=== PATIENT | female | born 1960 | race Caucasian/White ===

== ENCOUNTER 2018-01-27 11:43 | Inpatient (IN) | payer BC ==
--- NOTE | 2018-01-27 11:57 | PDOC ---
History of Present Illness - General Chief Complaint: Respiratory Stated Complaint: R/O PNE Time Seen by Provider: 01/27/18 11:53 - History of Present Illness Initial Comments: 01/27/18 11:56 Patient denies N/V, F,C, CP, SOB, urinary complaints, abdominal pain, diarrhea, constipation, lightheadedness, weakness, sensory changes. PMHx: as noted above ROS: as noted SHx: Allergies: Past History - Past Medical History Allergies/Adverse Reactions: Allergies Allergy/AdvReac Type Severity Reaction Status Date / Time No Known Allergies Allergy Verified 01/27/18 11:49 COPD: Yes Hypercholesterolemia: Yes Psychiatric Problems: Yes (depression) - Suicide/Smoking/Psychosocial Hx Smoking History: Current every day smoker Number of Cigarettes Smoked Daily: 20 Information on smoking cessation initiated: No Review of Systems - Review of Systems Comments:: 01/27/18 11:56 GENERAL/CONSTITUTIONAL: No fever or chills. No weakness. HEAD, EYES, EARS, NOSE AND THROAT: No change in vision. No ear pain or discharge. No sore throat. CARDIOVASCULAR: No chest pain or shortness of breath RESPIRATORY: No cough, wheezing, or hemoptysis. GASTROINTESTINAL: No nausea, vomiting, diarrhea or constipation. GENITOURINARY: No dysuria, frequency, or change in urination. MUSCULOSKELETAL: No joint or muscle swelling or pain. No neck or back pain. SKIN: No rash NEUROLOGIC: No headache, vertigo, loss of consciousness, or change in strength/ sensation. ENDOCRINE: No increased thirst. No abnormal weight change HEMATOLOGIC/LYMPHATIC: No anemia, easy bleeding, or history of blood clots. ALLERGIC/IMMUNOLOGIC: No hives or skin allergy. *Physical Exam - Vital Signs Last Vital Signs Temp Pulse Resp BP Pulse Ox 97.8 F 75 18 161/56 L 93 L 01/27/18 11:45 01/27/18 11:45 01/27/18 11:45 01/27/18 11:45 01/27/18 11:45 - Physical Exam Comments: 01/27/18 11:56 GENERAL: Awake, alert, and fully oriented, in no acute distress HEAD: No signs of trauma, normocephalic, atraumatic EYES: PERRLA, EOMI, sclera anicteric, conjunctiva clear ENT: Auricles normal inspection, hearing grossly normal, nares patent, oropharynx clear without exudates. Moist mucosa NECK: Normal ROM, supple, no lymphadenopathy, JVD, or masses LUNGS: No distress, speaks full sentences, clear to auscultation bilaterally HEART: Regular rate and rhythm, normal S1 and S2, no murmurs, rubs or gallops, peripheral pulses normal and equal bilaterally. ABDOMEN: Soft, nontender, normoactive bowel sounds. No guarding, no rebound. No masses EXTREMITIES : Normal inspection, Normal range of motion, no edema. No clubbing or cyanosis. NEUROLOGICAL: Cranial nerves II through XII grossly intact. Normal speech, normal gait, no focal sensorimotor deficits SKIN: Warm, Dry, normal turgor, no rashes or lesions noted Moderate Sedation - Procedure Monitoring Vital Signs: Procedure Monitoring Vital Signs Temperature 97.8 F 01/27/18 11:45 Pulse Rate 75 01/27/18 11:45 Respiratory Rate 18 01/27/18 11:45 Blood Pressure 161/56 L 01/27/18 11:45 O2 Sat by Pulse Oximetry (%) 93 L 01/27/18 11:45 *DC/Admit/Observation/Transfer - Referrals Referrals: Carlyn Hunter MD [Primary Care Provider] - - Patient Instructions Additional Instructions: Please return to the emergency department with any new or worsening symptoms or concerns. Please follow up with your primary care physician within 72 hours. - Post Discharge Activity - Attestations Physician Attestion: 01/27/18 11:57 I attest to the information provided in this note.
--- NOTE | 2018-01-27 12:05 | PDOC ---
History of Present Illness - History of Present Illness Initial Comments: 01/27/18 12:08 Ms. Glass is a 57 yo female w/ pmh of HLD and COPD (current every day smoker) who presents for evaluation of several day history of cough with fevers, chills , and body aches. Patient reports these symptoms started Sunday night and were shared by her granddaughter. Patient reports she was evaluated at urgent care on Sunday (01/25) and given a z-mary for presumed pneumonia however presents today as symptoms have continued with increased coughing (fever/chills/body aches have resolved). She did not have a flu swab at that time nor a CXR. Patient has no other complaints at this time. The patient denies chest pain, headache and dizziness. Denies nausea, vomit, diarrhea and constipation. Denies dysuria, frequency, urgency and hematuria. <Fish Cast - Last Filed: 01/27/18 14:44> <Jayy Norton - Last Filed: 01/27/18 16:03> - General Chief Complaint: Respiratory Stated Complaint: R/O PNE Time Seen by Provider: 01/27/18 11:53 Past History - Past Medical History COPD: Yes Hypercholesterolemia: Yes Psychiatric Problems: Yes (depression) - Suicide/Smoking/Psychosocial Hx Smoking History: Current every day smoker Number of Cigarettes Smoked Daily: 20 Information on smoking cessation initiated: No <Fish Cast - Last Filed: 01/27/18 14:44> <Jayy Norton - Last Filed: 01/27/18 16:03> - Past Medical History Allergies/Adverse Reactions: Allergies Allergy/AdvReac Type Severity Reaction Status Date / Time No Known Allergies Allergy Verified 01/27/18 11:49 Home Medications: Ambulatory Orders Albuterol Sulfate [Proair Respiclick] 2 puff IH Q4H PRN 01/27/18 Budesonide/Formeterol Fumarate [SYMBICORT 160/4.5mcg -] 2 puff IH BID 01/27/18 Escitalopram Oxalate [Lexapro -] 20 mg PO DAILY 01/27/18 Lorazepam 0.5 mg PO DAILY PRN 01/27/18 Rosuvastatin [Crestor -] 10 mg PO DAILY 01/27/18 Tiotropium [place] [Spiriva Respimat] 2 puff IH DAILY 01/27/18 Review of Systems - Review of Systems Comments:: 01/27/18 12:08 GENERAL/CONSTITUTIONAL: +Resolved fever/chills. No weakness. HEAD, EYES, EARS, NOSE AND THROAT: No change in vision. No ear pain or discharge. No sore throat. CARDIOVASCULAR: No chest pain or shortness of breath RESPIRATORY: +Increased cough from COPD daily unrelieved by tessalon pearls or ventolin inhaler. No wheezing, or hemoptysis. GASTROINTESTINAL: No nausea, vomiting, diarrhea or constipation. GENITOURINARY: No dysuria, frequency, or change in urination. MUSCULOSKELETAL: +Bodyaches (resolved) SKIN: No rash NEUROLOGIC: No headache, vertigo, loss of consciousness, or change in strength/ sensation. ENDOCRINE: No increased thirst. No abnormal weight change HEMATOLOGIC/LYMPHATIC: No anemia, easy bleeding, or history of blood clots. ALLERGIC/IMMUNOLOGIC: No hives or skin allergy. <Fish Cast - Last Filed: 01/27/18 14:44> *Physical Exam - Vital Signs Last Vital Signs Temp Pulse Resp BP Pulse Ox 97.8 F 75 18 161/56 L 93 L 01/27/18 11:45 01/27/18 11:45 01/27/18 11:45 01/27/18 11:45 01/27/18 11:45 - Physical Exam Comments: 01/27/18 12:08 GENERAL: Awake, alert, and fully oriented, in no acute distress HEAD: No signs of trauma, normocephalic, atraumatic EYES: PERRLA, EOMI, sclera anicteric, conjunctiva clear ENT: Auricles normal inspection, hearing grossly normal, nares patent, oropharynx clear without exudates. Moist mucosa NECK: Normal ROM, supple, no lymphadenopathy, JVD, or masses LUNGS: +Coarse breath sounds appreciated in all wagner. Dry hacking cough appreciated. Speaks full sentences HEART: Regular rate and rhythm, normal S1 and S2, no murmurs, rubs or gallops, peripheral pulses normal and equal bilaterally. ABDOMEN: Soft, nontender, normoactive bowel sounds. No guarding, no rebound. No masses EXTREMITIES: Normal inspection, Normal range of motion, no edema. No clubbing or cyanosis. NEUROLOGICAL: Cranial nerves II through XII grossly intact. Normal speech, normal gait, no focal sensorimotor deficits SKIN: Warm, Dry, normal turgor, no rashes or lesions noted. <Fish Cast - Last Filed: 01/27/18 14:44> - Vital Signs Last Vital Signs Temp Pulse Resp BP Pulse Ox 98.5 F 83 18 113/83 93 L 01/27/18 15:42 01/27/18 15:42 01/27/18 15:42 01/27/18 15:42 01/27/18 15:42 <Jayy Norton - Last Filed: 01/27/18 16:03> Moderate Sedation - Procedure Monitoring Vital Signs: Procedure Monitoring Vital Signs Temperature 97.8 F 01/27/18 11:45 Pulse Rate 75 01/27/18 11:45 Respiratory Rate 18 01/27/18 11:45 Blood Pressure 161/56 L 01/27/18 11:45 O2 Sat by Pulse Oximetry (%) 93 L 01/27/18 11:45 <Fish Cast - Last Filed: 01/27/18 14:44> - Procedure Monitoring Vital Signs: Procedure Monitoring Vital Signs Temperature 98.5 F 01/27/18 15:42 Pulse Rate 83 01/27/18 15:42 Respiratory Rate 18 01/27/18 15:42 Blood Pressure 113/83 01/27/18 15:42 O2 Sat by Pulse Oximetry (%) 93 L 01/27/18 15:42 <Jayy Norton - Last Filed: 01/27/18 16:03> ED Treatment Course - LABORATORY CBC & Chemistry Diagram: 01/27/18 12:47 01/27/18 12:47 <Fish Cast - Last Filed: 01/27/18 14:44> - LABORATORY CBC & Chemistry Diagram: 01/27/18 12:47 01/27/18 12:47 - ADDITIONAL ORDERS Additional order review: Laboratory Results 01/27/18 12:47 Sodium 137 Potassium 3.6 Chloride 100 Carbon Dioxide 28 Anion Gap 8 BUN 10 Creatinine 0.6 Creat Clearance w eGFR > 60 Random Glucose 92 Calcium 8.1 L Total Bilirubin 0.3 AST 25 ALT 32 Alkaline Phosphatase 124 H Total Protein 6.7 Albumin 3.0 L 01/27/18 12:47 RBC 4.97 MCV 80.7 MCHC 32.0 RDW 15.6 MPV 8.7 Neutrophils % 73.0 Lymphocytes % 14.4 Monocytes % 8.3 Eosinophils % 1.6 Basophils % 2.7 H - Medications Given in the ED: ED Medications Discontinued Medications Generic Name Dose Route Start Last Admin Trade Name Jenny PRN Reason Stop Dose Admin Albuterol/Ipratropium 1 amp 01/27/18 12:30 01/27/18 13:02 Duoneb - NEB 01/27/18 13:16 1 amp Q15M YULISSA Administration Prednisone 60 mg 01/27/18 14:58 01/27/18 15:25 Deltasone - PO 01/27/18 14:59 60 mg ONCE ONE Administration <Jayy Norton - Last Filed: 01/27/18 16:03> Medical Decision Making - Medical Decision Making 01/27/18 12:25 Ms. Glass is a 57 yo female w/ pmh as described who presents for evaluation of cough diagnosed as pneumonia in outpatient urgent care with exacerbation of cough symptoms. Patient evaluation begun with basic labs and EKG/CXR/Flu for r/ o pneumonia. Smoking cessation strategies also discussed and patient verbalized she is going to try to quit smoking entirely. 01/27/18 13:09 Patient noted to have positive influenza. Labs otherwise grossly wnl as below. 01/27/18 14:11 Patient noted to have O2 saturation of approximately 93% - steady throughout visit. Patient unable to describe baseline COPD sat. PCP/Gang Pusher paged for further information. 01/27/18 14:25 Discussed patient w/ Gang Pusher (Dr. Weiner) who reports patient's baseline is around 93. Suggested walking patient for evaluation. 01/27/18 14:44 Patient ambulatory exam positive for drop of O2 saturation to 81%. Given patient 's comorbidities will admit patient for overnight evaluation. Laboratory Results - last 24 hr 01/27/18 01/27/18 01/27/18 12:35 12:47 12:47 WBC 6.3 RBC 4.97 Hgb 12.9 Hct 40.2 MCV 80.7 MCH 25.9 MCHC 32.0 RDW 15.6 Plt Count 193 MPV 8.7 Absolute Neuts (auto) 4.6 Neutrophils % 73.0 Lymphocytes % 14.4 Monocytes % 8.3 Eosinophils % 1.6 Basophils % 2.7 H Nucleated RBC % 0 Sodium 137 Potassium 3.6 Chloride 100 Carbon Dioxide 28 Anion Gap 8 BUN 10 Creatinine 0.6 Creat Clearance w eGFR > 60 Random Glucose 92 Calcium 8.1 L Total Bilirubin 0.3 AST 25 ALT 32 Alkaline Phosphatase 124 H Total Protein 6.7 Albumin 3.0 L Influenza A (Rapid) Positive Influenza B (Rapid) Negative <Fish Cast - Last Filed: 01/27/18 14:44> *DC/Admit/Observation/Transfer - Discharge Dispostion Decision to Admit order: Yes <Fish Cast - Last Filed: 01/27/18 14:44> <Jayy Norton - Last Filed: 01/27/18 16:03> Diagnosis at time of Disposition: Influenza, Shortness of breath COPD (chronic obstructive pulmonary disease) Qualifiers: COPD type: unspecified COPD Qualified Code(s): J44.9 - Chronic obstructive pulmonary disease, unspecified
--- NOTE | 2018-01-27 12:22 | PDOC ---
Attending Attestation - Resident Resident Name: Fish Cast - ED Attending Attestation I have performed the following: I have examined & evaluated the patient, The case was reviewed & discussed with the resident, I agree w/resident's findings & plan, Exceptions are as noted - HPI HPI: 01/27/18 13:41 The patient is a 57 year old female with a significant past medical history of obesity, COPD, and hyperlipidemia who presents to the emergency department with a persistent cough for several days. The patient reports some associated chills with her caught. She states that she went to urgent care 2 days ago by which she was given a z pack for a pneumonia diagnosis. The patent reports that she has had some sick contact with her grand-daughter at home. She denies any other symptoms. She denies any fever, nausea, vomiting, diarrhea, constipation or urinary symptoms. She denies any chest pain, headache or dizziness. pt notes some mildly increased LABOY recently. +chronic smoker, but recently stopped - Physicial Exam PE: 01/27/18 13:42 GENERAL: The patient is awake, alert, and fully oriented, Nontoxic - in no acute distress. HEAD: Normocephalic, atraumatic. EYES: extraocular movements intact, sclera anicteric, conjunctiva clear. LUNGS: scattered whezing bilaterally, no acute resp distress, speaking complete sentences HEART: Regular rate and rhythm, normal S1 and S2 without murmur, rub or gallop. EXTREMITIES: Normal range of motion, no edema. NEUROLOGICAL: No facial assymetry, Normal speech, PSYCH: Normal mood, normal affect. SKIN: Warm, Dry, normal turgor, - Medical Decision Making 01/27/18 12:22 89y F hx of hl, copd presents with 1 day of cough, fever/chlls, body aches, went to urgent care and treated for clnical pna. cough getting worse, but fever and body aches seem to improve +granddaughter sick with similar symptoms 01/27/18 13:42 flu + cxr neg labs reviewed will treat for flu pts sat is 93-94% on RA - will discuss with PMD / pulm to see if we can get the pts basline saturation 01/27/18 14:[address] Weiner - the patient's baseline O2 sat is approximately 94 %, we ambulated the patient the patient's oxygenation dropped 81% briefly before slowly increasing to the low 90s. Due to this degree of hypoxia with exertion will admit for further management of COPD exacerbation and influenza. Heart Score/ECG Review - ECG Impressions Comment:: 01/27/18 16:16 Twelve-lead EKG was performed and reviewed by me. There is normal sinus rhythm with a normal rate. rate of 72 The axis is normal. The intervals are normal. There is normal R wave progression There are no ST or T wave abnormalities. Impression: Normal twelve-lead EKG
[2018-01-27] MEDS ORDERED: ALBUTEROL SO4 2.5/IPRATROPIUM 0.5 INH SOL 3 ML VIAL.NEB. NEB ONE (12:47)
[2018-01-27] MEDS: ALBUTEROL SO4 2.5/IPRATROPIUM 0.5 INH SOL 3 ML VIAL.NEB. NEB SCH ×3 (12:50→13:02)
[2018-01-27 12:58] LABS: BASO % 2.7 % (0-2.0); EOS % 1.6 % (0-4.5); HEMATOCRIT 40.2 % (32.4-45.2); HEMOGLOBIN 12.9 GM/dL (10.7-15.3); LYMPH % 14.4 % (8-40); MCH 25.9 pg (25.7-33.7); MEAN CELL VOLUME 80.7 fl (80-96); MEAN PLT VOLUME 8.7 fl (7.5-11.1); MONO % 8.3 % (3.8-10.2); PLATELET COUNT 193 K/MM3 (134-434); RBC 4.97 M/mm3 (3.60-5.2); RDW 15.6 % (11.6-15.6); WHITE BLOOD COUNT 6.3 K/mm3 (4.0-10.0)
[2018-01-27 13:12] LABS: ALK PHOS 124 U/L (45-117); ANION GAP 8 MMOL/L (8-16); BILIRUBIN,TOTAL 0.3 mg/dL (0.2-1); BLOOD UREA NITROGEN 10 mg/dL (7-18); CALCIUM 8.1 mg/dL (8.5-10.1); CHLORIDE 100 mmol/L (98-107); CO2 28 mmol/L (21-32); CREATININE 0.6 mg/dL (0.55-1.3); GLUCOSE,RANDOM 92 mg/dL (74-106); POTASSIUM 3.6 mmol/L (3.5-5.1); SGOT/AST 25 U/L (15-37); SGPT/ALT 32 U/L (13-61); SODIUM 137 mmol/L (136-145); TOT PROT 6.7 g/dl (6.4-8.2)
[2018-01-27] MEDS ORDERED: predniSONE 20 MG TABLET (UD) PO ONE (14:58)
[2018-01-27] MEDS ORDERED: predniSONE 20 MG TABLET (UD) ONE (15:12)
[2018-01-27] MEDS ORDERED: LORazepam 0.5 MG TABLET PO PRN (16:09)
[2018-01-27] MEDS: ESCITALOPRAM OXALATE 20 MG TABLET (FP) PO SCH (17:41)
[2018-01-27] MEDS: methylPREDNISolone NA SUCC 40 MG/1 ML VIAL IVPUSH SCH (17:42)
[2018-01-27] MEDS: ALBUTEROL SO4 0.083% IH SOL 2.5 MG/3 ML VIAL.NEB. NEB SCH ×3 (17:58→22:20)
[2018-01-27] MEDS: ROSUVASTATIN CA 10 MG TABLET (FP) PO SCH (21:53)
[2018-01-28] MEDS: methylPREDNISolone NA SUCC 40 MG/1 ML VIAL IVPUSH SCH ×3 (01:38→17:53)
[2018-01-28] MEDS: ALBUTEROL SO4 0.083% IH SOL 2.5 MG/3 ML VIAL.NEB. NEB SCH ×4 (07:58→21:20)
--- NOTE | 2018-01-28 08:37 | HP ---
Admitting History and Physical - Primary Care Physician PCP: Carlyn Hunter - Admission Chief Complaint: cough History of Present Illness: sick for 6 days with fever, chills, myalgias, malaise and cough -went to Urgent care 3 days ago -was given zpack-took 3 doses came to er with c/o peristent cough +for influenza A in er hypoxic on ambulation with 81%O2sats History Source: Patient Limitations to Obtaining History: No Limitations - Past Medical History Cardiovascular: Yes: Hyperlipdemia Pulmonary: Yes: Bronchitis, COPD ...: No Psych: Yes: Depression - Past Surgical History Past Surgical History: Yes: , Tubal Ligation - Smoking History Smoking history: Current every day smoker Have you smoked in the past 12 months: Yes Aproximately how many cigarettes per day: 20 - Alcohol/Substance Use Hx Alcohol Use: No - Social History ADL: Independent History of Recent Travel: No Home Medications - Allergies Allergies/Adverse Reactions: Allergies Allergy/AdvReac Type Severity Reaction Status Date / Time No Known Allergies Allergy Verified 01/27/18 11:49 - Home Medications Home Medications: Ambulatory Orders Albuterol Sulfate [Proair Respiclick] 2 puff IH Q4H PRN 01/27/18 Budesonide/Formeterol Fumarate [SYMBICORT 160/4.5mcg -] 2 puff IH BID 01/27/18 Escitalopram Oxalate [Lexapro -] 20 mg PO DAILY 01/27/18 Lorazepam 0.5 mg PO DAILY PRN 01/27/18 Rosuvastatin [Crestor -] 10 mg PO DAILY 01/27/18 Tiotropium [place] [Spiriva Respimat] 2 puff IH DAILY 01/27/18 Family Disease History - Family Disease History Family Disease History: CA: Grandparent (grandmother colon ca in her 70s), Other : Father (alcohol abuse), Mother (dementia) Review of Systems - Review of Systems Constitutional: reports: No Symptoms HENT: reports: No Symptoms Neck: reports: No Symptoms Cardiovascular: reports: No Symptoms Respiratory: reports: Cough, Exercise Intolerance, SOB on Exertion, Wheezing. denies: Hemoptysis, Orthopnea, PND Gastrointestinal: reports: Indigestion. denies: Abdominal Pain, Bloating, Constipation Genitourinary: reports: No Symptoms Musculoskeletal: reports: No Symptoms Integumentary: reports: No Symptoms Neurological: reports: No Symptoms Endocrine: reports: No Symptoms Hematology/Lymphatic: reports: No Symptoms Psychiatric: reports: No Symptoms Physical Examination Vital Signs: Vital Signs Temperature 98.6 F 01/28/18 06:31 Pulse Rate 77 01/28/18 06:31 Respiratory Rate 20 01/28/18 06:31 Blood Pressure 155/76 01/28/18 06:31 O2 Sat by Pulse Oximetry (%) 93 L 01/27/18 16:57 Constitutional: Yes: Well Nourished, No Distress, Obese Eyes: Yes: Conjunctiva Clear, EOM Intact HENT: Yes: Normocephalic Neck: Yes: Trachea Midline Cardiovascular: Yes: Regular Rate and Rhythm Respiratory: Yes: CTA Bilaterally, Poor Air Entry Gastrointestinal: Yes: Normal Bowel Sounds, Soft Musculoskeletal: Yes: WNL Extremities: Yes: WNL Edema: No Peripheral Pulses WNL: Yes Integumentary: Yes: WNL Neurological: Yes: WNL Labs: CBC, BMP 01/27/18 12:47 01/27/18 12:47 Imaging - Results Chest X-ray: Report Reviewed (no infiltrate) Problem List - Problems (1) Hyperlipidemia Code(s): E78.5 - HYPERLIPIDEMIA, UNSPECIFIED Qualifiers: Hyperlipidemia type: pure hypercholesterolemia Qualified Code(s): E78.00 - Pure hypercholesterolemia, unspecified; E78.0 - Pure hypercholesterolemia (2) COPD (chronic obstructive pulmonary disease) Code(s): J44.9 - CHRONIC OBSTRUCTIVE PULMONARY DISEASE, UNSPECIFIED Qualifiers: COPD type: COPD with acute exacerbation Qualified Code(s): J44.1 - Chronic obstructive pulmonary disease with (acute) exacerbation (3) Influenza Code(s): J11.1 - FLU DUE TO UNIDENTIFIED INFLUENZA VIRUS W OTH RESP MANIFEST (4) Influenza A Code(s): J10.1 - FLU DUE TO OTH IDENT INFLUENZA VIRUS W OTH RESP MANIFEST Assessment/Plan tamiflu steroid iv taper as tolerated nebulizers O2 as needed GI/DVT prophylaxis tobacco cessation pulm f/up requested
--- NOTE | 2018-01-28 09:55 | EKG ---
Test Reason : Blood Pressure : / mmHG Vent. Rate : 072 BPM Atrial Rate : 072 BPM P-R Int : 134 ms QRS Dur : 094 ms QT Int : 396 ms P-R-T Axes : 077 046 073 degrees QTc Int : 433 ms NORMAL SINUS RHYTHM POSSIBLE LEFT ATRIAL ENLARGEMENT BORDERLINE ECG NO PREVIOUS ECGS AVAILABLE Confirmed by SUDHIR HUDSON, SAMMIE ([id number]) on 01/28/2018 9:55:10 AM Referred By: Confirmed By:SAMMIE PEGUERO MD
[2018-01-28] MEDS: OSELTAMIVIR PHOSPHATE 75 MG CAPSULE PO SCH ×2 (10:35→22:15)
[2018-01-28] MEDS: ESCITALOPRAM OXALATE 20 MG TABLET (FP) PO SCH (10:35)
[2018-01-28] MEDS: PANTOPRAZOLE 40 MG TABLET (FP) PO SCH (10:35)
--- NOTE | 2018-01-28 14:06 | PN ---
Progress Note (short form) - Note Progress Note: PULMONARY CONSULTATION DICTATED 01/28/18 IMP ACUTE HYPOXEMIC RESPIRATORY FAILURE COPD EXACERBATION INFLUENZA A HLD PLAN IV STEROIDS INHALED BRONCHODILATORS O2 ABX TAMIFLU AMBULATORY O2 SAT PRIOR TO DISCHARGE TO DETERMINE IF PT IS A CANDIDATE FOR HOME O2 DR YOUNG Problem List - Problems (1) Acute hypoxemic respiratory failure Code(s): J96.01 - ACUTE RESPIRATORY FAILURE WITH HYPOXIA (2) COPD (chronic obstructive pulmonary disease) Code(s): J44.9 - CHRONIC OBSTRUCTIVE PULMONARY DISEASE, UNSPECIFIED Qualifiers: COPD type: COPD with acute exacerbation Qualified Code(s): J44.1 - Chronic obstructive pulmonary disease with (acute) exacerbation (3) Hyperlipidemia Code(s): E78.5 - HYPERLIPIDEMIA, UNSPECIFIED Qualifiers: Hyperlipidemia type: pure hypercholesterolemia Qualified Code(s): E78.00 - Pure hypercholesterolemia, unspecified; E78.0 - Pure hypercholesterolemia (4) Influenza A Code(s): J10.1 - FLU DUE TO OTH IDENT INFLUENZA VIRUS W OTH RESP MANIFEST (5) COPD exacerbation Code(s): J44.1 - CHRONIC OBSTRUCTIVE PULMONARY DISEASE W (ACUTE) EXACERBATION
[2018-01-28] MEDS: MAG HYDROX/AL HYDROX/SIMETH 30 ML UNIT-DOSE CUP PO PRN (14:21)
--- NOTE | 2018-01-28 14:28 | CONS ---
DATE OF CONSULTATION: 01/28/2018 REFERRING PHYSICIAN: Carlyn Daniel MD HISTORY: The patient is a 57-year-old white female with a past medical history of COPD, longstanding hyperlipidemia, bronchitis, longstanding history of tobacco use approximately 1 pack per day since age 15 stopped a couple of days ago admitted to [facility] with the complaint of shortness of breath and cough. The patient states that she developed fever, chills, myalgias, and cough approximately 6 days ago. She apparently went to an Urgent Care Center 3 days ago and was given a CPAP and took 3 doses. Despite these measures, had persistent cough and shortness of breath. In the ER, she was noted to be hypoxic on ambulation with O2 saturation of 81% on room air. Influenza screen was positive for influenza A. The patient was admitted to the floor. She was started on steroids, inhaled bronchodilators, and Tamiflu. The patient denies any hemoptysis. Denies any chest pain, nausea, vomiting, or diaphoresis. PAST MEDICAL HISTORY: Again includes COPD, bronchitis, hyperlipidemia. REVIEW OF SYSTEMS: Positive cough, positive shortness of breath, positive fever, positive chills, positive wheezing. No chest pain, no palpitations, no nausea, no abdominal pain, no lower extremity edema. MEDICATIONS: Prior to admission include albuterol, Symbicort, Lexapro, lorazepam, Crestor, and Spiriva. CURRENT MEDICATIONS: Include Solu-Medrol, Levaquin, Lexapro, Spiriva, Ativan, Crestor, Tamiflu, and Protonix. PHYSICAL EXAMINATION: General: The patient is a well-developed, well-nourished female awake and alert currently in no acute distress. Vital Signs: She is currently afebrile. Blood pressure is 154/73, respiratory rate 18, O2 saturation 89% on room air at rest. HEENT: Normocephalic and atraumatic. Neck: Supple. Heart: Regular S1, S2. Chest: She has got bilateral wheezes. Abdomen: Soft. Bowel sounds are positive. Extremities: No cyanosis or edema. DIAGNOSTIC DATA: No infiltrates, no effusions. Minimal atelectatic changes at the bases. BUN 10, creatinine 0.6, WBC 6.3, hemoglobin 12.9, hematocrit 40.2 with a platelet count of 193,000. IMPRESSION: 1. Acute hypoxemic respiratory failure secondary to 2. Chronic obstructive pulmonary disease exacerbation. 3. Acute influenza A. 4. Hyperlipidemia. PLAN: IV steroids. Inhaled bronchodilators. Antibiotic therapy. Tamiflu. Monitor peak flow. Continue supplemental O2. Check ambulatory pulse oximetry prior to discharge to determine whether the patient is a candidate for home O2. NERIS YOUNG M.D. NIEVES/[id number]
[2018-01-28] MEDS ORDERED: PT OWN MED DRAWER 7, Y5N ONE (18:58)
[2018-01-28] MEDS: TIOTROPIUM BROMIDE 2.5 MCG (SPIRIVA) RESPIMAT INHALER IH SCH (19:01)
[2018-01-28] MEDS: ROSUVASTATIN CA 10 MG TABLET (FP) PO SCH (22:15)
[2018-01-28] MEDS: ZOLPIDEM TARTRATE 5 MG TABLET PO PRN (22:16)
[2018-01-29] MEDS: methylPREDNISolone NA SUCC 40 MG/1 ML VIAL IVPUSH SCH ×3 (01:14→21:59)
--- NOTE | 2018-01-29 08:32 | PN ---
Progress Note (short form) - Note Progress Note: Vital Signs Period Temp Pulse Resp BP Sys/Carey Pulse Ox Last 24 Hr 97.6 F-98.3 F 71-92 18-20 144-154/70-96 92-92 still hypoxic intermittently to high 80s denies dyspnea minimal cough S1S2 RRR lungs scattered exp wheezing abd soft NT +BS no edema, pos.pulses acute hypoxic resp.failure COPD exacerbation Influenza A hyperlipidemia Obesity HTN same dose steroid nebs O2 prn tamiflu add norvasc for BP control Problem List - Problems (1) Hyperlipidemia Code(s): E78.5 - HYPERLIPIDEMIA, UNSPECIFIED Qualifiers: Hyperlipidemia type: pure hypercholesterolemia Qualified Code(s): E78.00 - Pure hypercholesterolemia, unspecified; E78.0 - Pure hypercholesterolemia (2) COPD (chronic obstructive pulmonary disease) Code(s): J44.9 - CHRONIC OBSTRUCTIVE PULMONARY DISEASE, UNSPECIFIED Qualifiers: COPD type: COPD with acute exacerbation Qualified Code(s): J44.1 - Chronic obstructive pulmonary disease with (acute) exacerbation (3) Influenza Code(s): J11.1 - FLU DUE TO UNIDENTIFIED INFLUENZA VIRUS W OTH RESP MANIFEST (4) Influenza A Code(s): J10.1 - FLU DUE TO OTH IDENT INFLUENZA VIRUS W OTH RESP MANIFEST
[2018-01-29] MEDS: ALBUTEROL SO4 0.083% IH SOL 2.5 MG/3 ML VIAL.NEB. NEB SCH ×4 (08:58→20:10)
[2018-01-29] MEDS: ESCITALOPRAM OXALATE 20 MG TABLET (FP) PO SCH (09:49)
[2018-01-29] MEDS: OSELTAMIVIR PHOSPHATE 75 MG CAPSULE PO SCH ×2 (09:49→21:58)
[2018-01-29] MEDS: amLODIPine BESYLATE 5 MG TABLET (FP) PO SCH (09:49)
[2018-01-29] MEDS: PANTOPRAZOLE 40 MG TABLET (FP) PO SCH (09:49)
[2018-01-29] MEDS: TIOTROPIUM BROMIDE 2.5 MCG (SPIRIVA) RESPIMAT INHALER IH SCH (11:48)
[2018-01-29] MEDS: MAG HYDROX/AL HYDROX/SIMETH 30 ML UNIT-DOSE CUP PO PRN (13:59)
--- NOTE | 2018-01-29 14:11 | PN ---
Progress Note (short form) - Note Progress Note: PULMONARY States breathing is improving. +nonproductive cough. less wheezing. no fevers or chills. Vital Signs Period Temp Pulse Resp BP Sys/Carey Pulse Ox Last 24 Hr 97.7 F-98.3 F 71-92 18-20 144-151/70-96 92-93 Gen: mildly tachypneic with speaking Heart: RRR Lung: distant breath sounds, no wheezes Abd: soft, nontender Ext: no edema CBC, BMP 01/27/18 12:47 01/27/18 12:47 Active Medications Al Hydroxide/Mg Hydroxide (Mylanta Oral Suspension -) 30 ml PO Q6H PRN PRN Reason: INDIGESTION Last Admin: 01/29/18 13:59 Dose: 30 ml Albuterol Sulfate (Ventolin 0.083% Nebulizer Soln -) 1 amp NEB RQID [facility] Last Admin: 01/29/18 08:58 Dose: 1 amp Amlodipine Besylate (Norvasc -) 5 mg PO DAILY [facility] Last Admin: 01/29/18 09:49 Dose: 5 mg Escitalopram Oxalate (Lexapro -) 20 mg PO DAILY [facility] Last Admin: 01/29/18 09:49 Dose: 20 mg Levofloxacin (Levaquin -) 500 mg PO DAILY [facility] Last Admin: 01/29/18 09:49 Dose: 500 mg Lorazepam (Ativan -) 0.5 mg PO DAILY PRN PRN Reason: ANXIETY Methylprednisolone Sodium Succinate (Solu-Medrol -) 40 mg IVPUSH Q8H-IV [facility] Last Admin: 01/29/18 09:49 Dose: 40 mg Oseltamivir Phosphate (Tamiflu -) 75 mg PO BID [facility] Stop: 02/02/18 09:59 Last Admin: 01/29/18 09:49 Dose: 75 mg Pantoprazole Sodium (Protonix -) 40 mg PO DAILY [facility] Last Admin: 01/29/18 09:49 Dose: 40 mg Rosuvastatin Calcium (Crestor -) 10 mg PO HS [facility] Last Admin: 01/28/18 22:15 Dose: 10 mg Tiotropium [place] (Spiriva Respimat) 2 puff IH DAILY [facility] Last Admin: 01/29/18 11:48 Dose: 2 puff Zolpidem Tartrate (Ambien -) 10 mg PO HS PRN PRN Reason: INSOMNIA Last Admin: 01/28/18 22:16 Dose: 10 mg A/P Acute Hypoxic Respiratory Failure Influenza A Acute COPD Exacerbation Hyperlipidemia - continue antibiotics, tamiflu - inhaled bronchodilators - O2 to keep Spo2 >90% - can decrease medrol to q12h - when ready for discharge, will need to check ambulatory SpO2 on room air to assess for home O2 - DVT prophylaxis
[2018-01-29] MEDS: ROSUVASTATIN CA 10 MG TABLET (FP) PO SCH (22:58)
[2018-01-29] MEDS: ZOLPIDEM TARTRATE 5 MG TABLET PO PRN (23:02)
[2018-01-30] MEDS ORDERED: PT OWN MED DRAWER 7, Y5N ONE (06:02)
[2018-01-30 07:49] LABS: BASO % 0.5 % (0-2.0); HEMATOCRIT 37.9 % (32.4-45.2); HEMOGLOBIN 12.9 GM/dL (10.7-15.3); LYMPH % 10.3 % (8-40); MCH 27.6 pg (25.7-33.7); MONO % 3.7 % (3.8-10.2); NEUT % 85.5 % (42.8-82.8); PLATELET COUNT 214 K/MM3 (134-434); RBC 4.67 M/mm3 (3.60-5.2); RDW 15.4 % (11.6-15.6); WHITE BLOOD COUNT 12.6 K/mm3 (4.0-10.0)
[2018-01-30 08:27] LABS: ALBUMIN 2.8 g/dl (3.4-5.0); ALK PHOS 85 U/L (45-117); ANION GAP 6 MMOL/L (8-16); BILIRUBIN,TOTAL 0.2 mg/dL (0.2-1); BLOOD UREA NITROGEN 18 mg/dL (7-18); CALCIUM 7.8 mg/dL (8.5-10.1); CHLORIDE 101 mmol/L (98-107); CO2 30 mmol/L (21-32); CREATININE 0.6 mg/dL (0.55-1.3); GLUCOSE,RANDOM 133 mg/dL (74-106); POTASSIUM 4.6 mmol/L (3.5-5.1); SGOT/AST 14 U/L (15-37); SGPT/ALT 21 U/L (13-61); SODIUM 137 mmol/L (136-145); TOT PROT 6.2 g/dl (6.4-8.2)
[2018-01-30] MEDS: ALBUTEROL SO4 0.083% IH SOL 2.5 MG/3 ML VIAL.NEB. NEB SCH ×4 (08:50→21:00)
[2018-01-30] MEDS: PANTOPRAZOLE 40 MG TABLET (FP) PO SCH (10:05)
[2018-01-30] MEDS: TIOTROPIUM BROMIDE 2.5 MCG (SPIRIVA) RESPIMAT INHALER IH SCH (10:05)
[2018-01-30] MEDS: OSELTAMIVIR PHOSPHATE 75 MG CAPSULE PO SCH ×2 (10:05→22:50)
[2018-01-30] MEDS: methylPREDNISolone NA SUCC 40 MG/1 ML VIAL IVPUSH SCH (10:05)
[2018-01-30] MEDS: ESCITALOPRAM OXALATE 20 MG TABLET (FP) PO SCH (10:05)
[2018-01-30] MEDS: amLODIPine BESYLATE 5 MG TABLET (FP) PO SCH (10:05)
--- NOTE | 2018-01-30 14:16 | PN ---
Progress Note (short form) - Note Progress Note: PULMONARY States breathing is improving. +nonproductive cough. Denies wheezing. no fevers or chills. Has been ambulating. Vital Signs Period Temp Pulse Resp BP Sys/Carey Pulse Ox Last 24 Hr 98 F-98.8 F 71-76 18-22 133-150/75-83 93-93 Gen: mildly tachypneic with speaking Heart: RRR Lung: distant breath sounds, no wheezes Abd: soft, nontender Ext: no edema CBC, BMP 01/30/18 06:15 01/30/18 06:15 Active Medications Al Hydroxide/Mg Hydroxide (Mylanta Oral Suspension -) 30 ml PO Q6H PRN PRN Reason: INDIGESTION Last Admin: 01/29/18 13:59 Dose: 30 ml Albuterol Sulfate (Ventolin 0.083% Nebulizer Soln -) 1 amp NEB RQID [facility] Last Admin: 01/30/18 08:50 Dose: 1 amp Amlodipine Besylate (Norvasc -) 5 mg PO DAILY [facility] Last Admin: 01/30/18 10:05 Dose: 5 mg Escitalopram Oxalate (Lexapro -) 20 mg PO DAILY [facility] Last Admin: 01/30/18 10:05 Dose: 20 mg Levofloxacin (Levaquin -) 500 mg PO DAILY [facility] Last Admin: 01/30/18 10:05 Dose: 500 mg Lorazepam (Ativan -) 0.5 mg PO DAILY PRN PRN Reason: ANXIETY Methylprednisolone Sodium Succinate (Solu-Medrol -) 40 mg IVPUSH BID [facility] Last Admin: 01/30/18 10:05 Dose: 40 mg Oseltamivir Phosphate (Tamiflu -) 75 mg PO BID [facility] Stop: 02/02/18 09:59 Last Admin: 01/30/18 10:05 Dose: 75 mg Pantoprazole Sodium (Protonix -) 40 mg PO DAILY [facility] Last Admin: 01/30/18 10:05 Dose: 40 mg Rosuvastatin Calcium (Crestor -) 10 mg PO HS [facility] Last Admin: 01/29/18 22:58 Dose: 10 mg Tiotropium [place] (Spiriva Respimat) 2 puff IH DAILY [facility] Last Admin: 01/30/18 10:05 Dose: 2 puff Zolpidem Tartrate (Ambien -) 10 mg PO HS PRN PRN Reason: INSOMNIA Last Admin: 01/29/18 23:02 Dose: 10 mg A/P Acute Hypoxic Respiratory Failure Influenza A Acute COPD Exacerbation Hyperlipidemia - continue antibiotics, tamiflu - inhaled bronchodilators - O2 to keep Spo2 >90% - can change steroids to PO prednisone 40mg daily and taper as outpt - will order ambulatory SpO2 on room air to assess for home O2 - DVT prophylaxis - can d/c home pending oxygen evaluation, she has a f/u appointment with Dr Weiner on 02/06
[2018-01-30 15:24] VITALS: BMI 40.1
--- NOTE | 2018-01-30 16:51 | PN ---
Progress Note (short form) - Note Progress Note: feeling better CBC, BMP 01/30/18 06:15 01/30/18 06:15 Vital Signs Period Temp Pulse Resp BP Sys/Carey Pulse Ox Last 24 Hr 98 F-98.8 F 71-74 18-20 133-150/69-83 93-93 S1S2 RRR lungs clear, poor ins.effort abd soft NT +BS no edema, pos.pulses acute hypoxic resp.failure COPD exacerbation Influenza A hyperlipidemia Obesity HTN po steroid in am nebs O2 prn tamiflu norvasc for BP control Problem List - Problems (1) Hyperlipidemia Code(s): E78.5 - HYPERLIPIDEMIA, UNSPECIFIED Qualifiers: Hyperlipidemia type: pure hypercholesterolemia Qualified Code(s): E78.00 - Pure hypercholesterolemia, unspecified; E78.0 - Pure hypercholesterolemia (2) COPD (chronic obstructive pulmonary disease) Code(s): J44.9 - CHRONIC OBSTRUCTIVE PULMONARY DISEASE, UNSPECIFIED Qualifiers: COPD type: COPD with acute exacerbation Qualified Code(s): J44.1 - Chronic obstructive pulmonary disease with (acute) exacerbation (3) Influenza Code(s): J11.1 - FLU DUE TO UNIDENTIFIED INFLUENZA VIRUS W OTH RESP MANIFEST (4) Influenza A Code(s): J10.1 - FLU DUE TO OTH IDENT INFLUENZA VIRUS W OTH RESP MANIFEST
[2018-01-30] MEDS: ZOLPIDEM TARTRATE 5 MG TABLET PO PRN (22:50)
[2018-01-30] MEDS: ROSUVASTATIN CA 10 MG TABLET (FP) PO SCH (22:50)
[2018-01-31 06:59] VITALS: BP 147/85; PULSE 70; TEMP 97.9
[2018-01-31] MEDS: ALBUTEROL SO4 0.083% IH SOL 2.5 MG/3 ML VIAL.NEB. NEB SCH ×2 (07:38→11:09)
--- NOTE | 2018-01-31 08:49 | PN ---
Progress Note (short form) - Note Progress Note: feeling better Vital Signs Period Temp Pulse Resp BP Sys/Carey Pulse Ox Last 24 Hr 97.6 F-98.8 F 70-92 18-24 130-147/66-85 91-93 S1S2 RRR lungs clear, poor ins.effort abd soft NT +BS no edema, pos.pulses acute hypoxic resp.failure COPD exacerbation Influenza A hyperlipidemia Obesity HTN po steroids nebs tamiflu, finish 5 days norvasc for BP control patient requires home oxygen with portability. Pateint oxygen saturationwas 81% on room air during exercise, used 3liter NC to reach 91% during exercise. Rsting room air O2sat is 88% Problem List - Problems (1) Hyperlipidemia Code(s): E78.5 - HYPERLIPIDEMIA, UNSPECIFIED Qualifiers: Hyperlipidemia type: pure hypercholesterolemia Qualified Code(s): E78.00 - Pure hypercholesterolemia, unspecified; E78.0 - Pure hypercholesterolemia (2) COPD (chronic obstructive pulmonary disease) Code(s): J44.9 - CHRONIC OBSTRUCTIVE PULMONARY DISEASE, UNSPECIFIED Qualifiers: COPD type: COPD with acute exacerbation Qualified Code(s): J44.1 - Chronic obstructive pulmonary disease with (acute) exacerbation (3) Influenza Code(s): J11.1 - FLU DUE TO UNIDENTIFIED INFLUENZA VIRUS W OTH RESP MANIFEST (4) Influenza A Code(s): J10.1 - FLU DUE TO OTH IDENT INFLUENZA VIRUS W OTH RESP MANIFEST
--- NOTE | 2018-01-31 08:54 | DS ---
Physical Examination Vital Signs: Vital Signs Temperature 97.9 F 01/31/18 06:58 Pulse Rate 70 01/31/18 06:58 Respiratory Rate 20 01/31/18 06:58 Blood Pressure 147/85 01/31/18 06:58 O2 Sat by Pulse Oximetry (%) 93 L 01/30/18 21:00 Constitutional: Yes: Well Nourished, Calm, Obese Eyes: Yes: EOM Intact HENT: Yes: Normocephalic Neck: Yes: Trachea Midline Cardiovascular: Yes: Regular Rate and Rhythm Respiratory: Yes: CTA Bilaterally, Diminished (poor air movement), On Nasal O2 Gastrointestinal: Yes: Normal Bowel Sounds, Soft Edema: No Peripheral Pulses WNL: Yes Neurological: Yes: WNL Labs: CBC, BMP 01/30/18 06:15 01/30/18 06:15 Discharge Summary Reason For Visit: SOB,INFLUENZA Current Active Problems Acute hypoxemic respiratory failure (Acute) COPD (chronic obstructive pulmonary disease) (Acute) COPD exacerbation (Acute) Hyperlipidemia (Acute) Influenza (Acute) Influenza A (Acute) Shortness of breath (Acute) Hospital Course: admitted for hypoxic resp.failure due to acute COPD exacerbation, due to INfluenza A treated with tamiflu/O2/Nebs/Iv steroids with clinical improvement within 24 hours of dishcarge exercise on room air o2 is 81 %, needs 3 L NC to increase to 91 % patient needs home O2 will follow up closely after discharge also added norvasc for BP control smoking cessation and weight loss counselled - Instructions Diet, Activity, Other Instructions: Please return to the emergency department with any new or worsening symptoms or concerns. Please follow up with your primary care physician within [address] hunter-call for appointment Referrals: Carlyn Hunter MD [Primary Care Provider] - Disposition: HOME - Home Medications Comprehensive Discharge Medication List: Ambulatory Orders Albuterol Sulfate [Proair Respiclick] 2 puff IH Q4H PRN 01/27/18 Budesonide/Formeterol Fumarate [SYMBICORT 160/4.5mcg -] 2 puff IH BID 01/27/18 Escitalopram Oxalate [Lexapro -] 20 mg PO DAILY 01/27/18 Lorazepam 0.5 mg PO DAILY PRN 01/27/18 Rosuvastatin [Crestor -] 10 mg PO DAILY 01/27/18 Tiotropium [place] [Spiriva Respimat] 2 puff IH DAILY 01/27/18 Albuterol 0.083% Nebulizer Ambar [Ventolin 0.083% Nebulizer Soln -] 1 amp NEB RQID PRN #90 amp 01/31/18 Amlodipine Besylate [Norvasc -] 5 mg PO DAILY #30 tablet 01/31/18 Oseltamivir Phosphate [Tamiflu -] 75 mg PO BID #3 capsule 01/31/18 predniSONE [Deltasone -] 10 mg PO DAILY #20 tablet 01/31/18
[2018-01-31] MEDS ORDERED: predniSONE 20 MG TABLET (UD) PO SCH (10:00)
--- NOTE | 2018-01-31 10:09 | PN ---
Progress Note (short form) - Note Progress Note: PULMONARY States breathing is improving. +nonproductive cough. Desaturated with ambulation , will need home O2. Vital Signs Period Temp Pulse Resp BP Sys/Carey Pulse Ox Last 24 Hr 97.6 F-98.2 F 70-92 18-24 130-147/66-85 91-93 Gen: mildly tachypneic with speaking Heart: RRR Lung: distant breath sounds, no wheezes Abd: soft, nontender Ext: no edema CBC, BMP 01/30/18 06:15 01/30/18 06:15 Active Medications Al Hydroxide/Mg Hydroxide (Mylanta Oral Suspension -) 30 ml PO Q6H PRN PRN Reason: INDIGESTION Last Admin: 01/29/18 13:59 Dose: 30 ml Albuterol Sulfate (Ventolin 0.083% Nebulizer Soln -) 1 amp NEB RQID [facility] Last Admin: 01/31/18 07:38 Dose: 1 amp Amlodipine Besylate (Norvasc -) 5 mg PO DAILY [facility] Last Admin: 01/30/18 10:05 Dose: 5 mg Escitalopram Oxalate (Lexapro -) 20 mg PO DAILY [facility] Last Admin: 01/30/18 10:05 Dose: 20 mg Levofloxacin (Levaquin -) 500 mg PO DAILY [facility] Last Admin: 01/30/18 10:05 Dose: 500 mg Lorazepam (Ativan -) 0.5 mg PO DAILY PRN PRN Reason: ANXIETY Oseltamivir Phosphate (Tamiflu -) 75 mg PO BID [facility] Stop: 02/02/18 09:59 Last Admin: 01/30/18 22:50 Dose: 75 mg Pantoprazole Sodium (Protonix -) 40 mg PO DAILY [facility] Last Admin: 01/30/18 10:05 Dose: 40 mg Prednisone (Deltasone -) 40 mg PO DAILY [facility] Rosuvastatin Calcium (Crestor -) 10 mg PO HS [facility] Last Admin: 01/30/18 22:50 Dose: 10 mg Tiotropium [place] (Spiriva Respimat) 2 puff IH DAILY [facility] Last Admin: 01/30/18 10:05 Dose: 2 puff Zolpidem Tartrate (Ambien -) 10 mg PO HS PRN PRN Reason: INSOMNIA Last Admin: 01/30/18 22:50 Dose: 10 mg A/P Acute Hypoxic Respiratory Failure Influenza A Acute COPD Exacerbation Hyperlipidemia - continue antibiotics, tamiflu - inhaled bronchodilators - prednisone taper as outpt - will need home O2 - DVT prophylaxis - can d/c home pending oxygen evaluation, she has a f/u appointment with Dr Weiner on 02/06
[2018-01-31] MEDS: TIOTROPIUM BROMIDE 2.5 MCG (SPIRIVA) RESPIMAT INHALER IH SCH (10:49)
[2018-01-31] MEDS: OSELTAMIVIR PHOSPHATE 75 MG CAPSULE PO SCH (10:50)
[2018-01-31] MEDS: ESCITALOPRAM OXALATE 20 MG TABLET (FP) PO SCH (10:50)
[2018-01-31] MEDS: amLODIPine BESYLATE 5 MG TABLET (FP) PO SCH (10:50)
[2018-01-31] MEDS: PANTOPRAZOLE 40 MG TABLET (FP) PO SCH (10:50)
== END 2018-01-31 12:59 | disposition home or self-care (01) | DRG 193 ==
LOC: JER 11:43 → JERBED 14:46 → J8W 16:48 → OBSVTOIN 01-28 08:30
PROVIDERS: ADMIT Internal Medicine; ATTEND Internal Medicine
DX: J10.1 Influenza due to other identified influenza virus with other respiratory manifestations (principal); J96.01 Acute respiratory failure with hypoxia; Z68.41 Body mass index [BMI] 40.0-44.9, adult; J44.1 Chronic obstructive pulmonary disease with (acute) exacerbation; E78.5 Hyperlipidemia, unspecified; F17.210 Nicotine dependence, cigarettes, uncomplicated; F32.9 Major depressive disorder, single episode, unspecified; E66.01 Morbid (severe) obesity due to excess calories; I10 Essential (primary) hypertension
CPT/HCPCS: 36415; 71046-TC-FY; 80053; 85025; 87804; 93005; 93010; 94640; 94761; 99284-25; G0378

== ENCOUNTER 2023-09-26 13:45 | Emergency (ER) | payer OTHER ==
[2023-09-26 13:50] VITALS: BP 126/74; PULSE 83; RESP 18; TEMP 97.5; BMI 37.2
[2023-09-26] MEDS ORDERED: LIDOCAINE 4% PATCH TP ONE ×2 (16:29)
[2023-09-26] MEDS ORDERED: LIDOCAINE PATCH REMOVAL MC SCH (22:00)
== END 2023-09-26 16:32 | disposition home or self-care (01) ==
LOC: JER 13:45 → JERFT 13:45
DX: M25.562 Pain in left knee (principal)
CPT/HCPCS: 73562-TC-LT-FY; 99283-25

== ENCOUNTER 2024-10-09 06:26 | Day surgery (SDC) | payer OTHER ==
[2024-10-08 12:50] VITALS: BMI 38.0
[2024-10-09 10:46] VITALS: TEMP 97.4
[2024-10-09 11:10] VITALS: PULSE 62
[2024-10-09 11:20] VITALS: BP 138/70; RESP 18
== END 2024-10-09 11:32 | disposition home or self-care (01) ==
LOC: JASU-ENDO 06:26
PROVIDERS: ATTEND Internal Medicine Gastroenterology
PROC: 0DBL8ZX Excision of Transverse Colon, Via Natural or Artificial Opening Endoscopic, Diagnostic (ICD-10-PCS; 2024-10-09)
PROC: 0DBN8ZX Excision of Sigmoid Colon, Via Natural or Artificial Opening Endoscopic, Diagnostic (ICD-10-PCS; 2024-10-09)
PROC: 0DBP8ZX Excision of Rectum, Via Natural or Artificial Opening Endoscopic, Diagnostic (ICD-10-PCS; 2024-10-09)
PROC: 0DBH8ZX Excision of Cecum, Via Natural or Artificial Opening Endoscopic, Diagnostic (ICD-10-PCS; principal; 2024-10-09 08:00)
DX: Z12.11 Encounter for screening for malignant neoplasm of colon (principal); D12.0 Benign neoplasm of cecum; D12.8 Benign neoplasm of rectum; K63.5 Polyp of colon; K64.8 Other hemorrhoids; K57.30 Diverticulosis of large intestine without perforation or abscess without bleeding
CPT/HCPCS: 82962; 88305-TC